=== PATIENT | female | born 1980 | race Asian ===

== ENCOUNTER 2022-05-08 11:24 | Emergency (ER) | payer OTHER ==
[~2022-05-08] VITALS: Ht 162.6 cm; Wt 81.8 kg
[2022-05-08 11:39] VITALS: BP 146/98
[2022-05-08] MEDS ORDERED: ATEN-72 PO (11:45)
[2022-05-08] MEDS ORDERED: METF750T57 PO (11:45)
[2022-05-08] MEDS ORDERED: CETI10TA58 PO (11:45)
[2022-05-08] MEDS ORDERED: SERT-439 PO (11:45)
[2022-05-08] MEDS ORDERED: ATOR10TA69 PO (11:45)
[2022-05-08] MEDS ORDERED: ACETAMINOPHEN 325 MG TABLET PO ONE (12:30)
[2022-05-08] MEDS ORDERED: IBUPROFEN 400 MG TABLET PO ONE (12:30)
== END 2022-05-08 12:39 | disposition home or self-care (01) ==
LOC: EMS 11:26
DX: B08.4 Enteroviral vesicular stomatitis with exanthem (principal); E11.9 Type 2 diabetes mellitus without complications; E78.00 Pure hypercholesterolemia, unspecified; F32.9 Major depressive disorder, single episode, unspecified; F41.9 Anxiety disorder, unspecified; I10 Essential (primary) hypertension
CPT/HCPCS: 99283